=== PATIENT | female | born 1960 | race Caucasian/White ===

== ENCOUNTER → 2017-01-07 | Outpatient (CLI) | payer BC ==
[~2017-01-07] MED LIST: ATEN25TA PO; HYDR25TAB PO; MOME50SP
--- NOTE | 2017-01-07 09:43 | REPMRS ---
Patient History The patient states she had a clinical breast exam in 01/2017. Patient is postmenopausal. Family history of colorectal cancer in mother at age 50 or over and breast cancer in maternal grandmother at age 50 or over. Took hormonal contraceptives for 27 years. Digital Woman Screen Mammo: January 07, 2017 - Exam #: [id number] Bilateral CC and MLO view(s) were taken. Technologist: Lindsay Huston, Technologist Prior study comparison: November 20, 2015, digital woman screen mammo performed at [facility]. November 19, 2014, digital woman screen mammo performed at [facility]. November 16, 2013, digital woman screen mammo performed at [facility]. FINDINGS: There are scattered fibroglandular densities. There has been no change in the appearance of the mammogram from the prior studies. There is a mild amount of scattered fibroglandular density which is fairly symmetric. There is no interval development of dominant mass, architectural distortion, or clustered microcalcification suggestive of malignancy. ASSESSMENT: BI-RADS/ACR category 1 mammogram. Negative. Recommendation Routine screening mammogram in 1 year (for women over age 40). This mammogram was interpreted with the aid of an FDA-approved computer-aided dectection system. Electronically Signed By: Duane Moore MD 01/07/17 0943
== END ==
LOC: M WHC 08:12
PROVIDERS: ATTEND Nurse Practitioner Family
DX: Z12.31 Encounter for screening mammogram for malignant neoplasm of breast (principal); Z92.0 Personal history of contraception; Z78.0 Asymptomatic menopausal state; Z80.0 Family history of malignant neoplasm of digestive organs

== ENCOUNTER 2017-07-01 06:33 | Day surgery (SDC) | payer BC ==
[~2017-07-01] VITALS: Ht 160 cm; Wt 88.5 kg
[~2017-07-01 06:33] MED LIST changes: +CALC500T36 PO; +CALTTAB6 PO; +VITA100067 PO; +VITA20008 PO; +VITMTA PO
[2017-07-01] MEDS ORDERED: LR 1,000 ML IV SCH ×2 (06:45→09:45)
[2017-07-01] MEDS ORDERED: LIDOCAINE 2% INJ 100 MG/5 ML SDV (FOR ANES.) As Ordered ONE (07:17)
[2017-07-01] MEDS ORDERED: PROPOFOL 200 MG/20 ML VIAL As Ordered ONE (07:17)
[2017-07-01] MEDS ORDERED: fentaNYL 100 MCG/2 ML INJECTION (J3010) As Ordered ONE (07:17)
[2017-07-01] MEDS ORDERED: ONDANSETRON 4MG/2ML VIAL (J2405) As Ordered ONE (07:17)
[2017-07-01] MEDS ORDERED: MIDAZOLAM INJ 2 MG/2 ML VIAL (J2250) As Ordered ONE (07:18)
[2017-07-01] MEDS ORDERED: dexameTHASONE 4 MG/ML 1ML VIAL (J1100) As Ordered ONE (07:18)
[2017-07-01] MEDS ORDERED: BUPIVACAINE HCL 0.5% 30 ML VIAL As Ordered ONE (07:18)
[2017-07-01] MEDS ORDERED: LIDOCAINE 2% MDV 20 ML VIAL As Ordered ONE (07:18)
[2017-07-01] MEDS: NEOSPORIN GU IRRIG 20 ML VIAL As Ordered ONE ×2 (08:09→08:10)
[2017-07-01] MEDS: BACITRACIN PWD 50,000 UNITS VIAL As Ordered ONE (08:10)
[2017-07-01] MEDS ORDERED: PERCOCET 5MG/325MG TAB PO PRN (09:45)
[2017-07-01] MEDS ORDERED: ONDANSETRON 4MG/2ML VIAL (J2405) IV PRN (09:45)
[2017-07-01 10:30] VITALS: BP 134/72
--- NOTE | 2017-07-01 10:33 | REP ---
LEFT FOOT, THREE VIEWS: Three views of left foot performed in a portable fashion. There is a metallic plate and multiple metallic screws at the base of the 1st metatarsal and adjacent medial cuneiform. Structures are well aligned. Overlying cast obscures underlying osseous detail. Signed by Mendoza Leach MD 07/01/2017 05:15 P
--- NOTE | 2017-07-02 10:54 | RO ---
DATE OF PROCEDURE: 07/01/2017 PREPROCEDURE DIAGNOSIS: Hallux valgus metatarsus primus varus deformity left foot. POSTPROCEDURE DIAGNOSIS: Hallux valgus metatarsus primus varus deformity left foot. PROCEDURE: Lapidus bunionectomy with plate and screw fixation left foot. SURGEON: Fran Nath DPM VIOLIN TUTOR: None. ANESTHESIA: Local MAC. HARDWARE UTILIZED: Right LPS plate size 0 with nonlocking screws 3.5 x 20 and a 3.5 x 16 and 2.7 x 16 and a 2.7 x 20 and a compression screw Dart-Fire 3.0 x 32. IRRIGATION: Dilute bacitracin, neomycin and polymyxin B solution. HEMOSTASIS: Left ankle pneumatic tourniquet at 225 mmHg for 70 minutes. DESCRIPTION OF OPERATION: On 07/01/2017, this 57-year-old white female was taken from her hospital room to the operating room and placed on the operating room table in the supine position. Following the induction of IV sedation and local and regional anesthesia, the left lower extremity was prepped and draped in the usual aseptic manner. The ankle pneumatic tourniquet was rapidly inflated. Attention was directed to the patient's left foot and the following procedure was performed: LAPIDUS BUNIONECTOMY WITH PLATE AND SCREW FIXATION, SIZE 0 LAPIDUS PLATE WITH NONLOCKING SCREWS 3.5 X 20 AND 3.5 X 16 AND 2.7 X 16 AND 2.7 X 20 AND A DART-FIRE COMPRESSION SCREW 3.0 X 32 MM: Attention was directed to the patient's left foot where there was noted to be a moderately severe hallux valgus deformity. At this time, an incision was made from the mid surface of the medial cuneiform to just distal to the first metatarsal phalangeal joint medial to the extensor tendon. The incision was deepened through subcutaneous tissues and all coursing venous tributaries were identified, underscored, clamped, cut, ligated and electrocoagulated as necessary. A linear capsulotomy was made in the same plane as the original skin incision. The capsular and periosteal structures were then dissected free in one continuous layer dorsally, medially and laterally thus creating and capsular and periosteal type envelope. This delivered into view the hypertrophied medial eminence of the first metatarsal which was osteotomized from distal to proximal through and through exiting medial to the sesamoidal groove. Attention was directed into first intermetatarsal space where dissection was carried to the level of the fibular sesamoid and the conjoined tendon was sharply dissected free from the fibular sesamoid. Attention was then directed toward the first metatarsal cuneiform joint and a periosteal incision was made over the first metatarsal cuneiform joint. The extensor tendon was held in a lateral direction. Utilizing a power saw, a wedge shaped piece of bone was taken from the first cuneiform trying to engage as little bone as possible, trying to minimize bone loss. After the wedge was removed, joint was inspected and no articular cartilage was remaining. Utilizing and #2-0 mm drill bit, the proximal and distal surfaces were fenestrated. The wound was flushed with copious amounts of dilute bacitracin, neomycin and polymyxin B solution. The first metatarsal angle was then reduced the temporary K-wire fixation was made between the first and second metatarsals. Intraoperative C-arm imagery revealed a good reduction of the intermetatarsal angle. A compression screw was then placed measuring 3.0 x 32 mm in length across the first metatarsal cuneiform joint giving good compression at the fusion site. A size 0 Lapidus plate was then contoured to the first metatarsal and middle cuneiform. It was then fixed with nonlocking screws and the proximal margin was 3.5 x 20 and a 3.5 x 16 screw and distally a 2.7 x 16 and a 2.7 x 20 mm screws were utilized. Intraoperative C-arm imagery was obtained to verify good reduction of the hallux valgus deformity and good apposition at the fusion site which was verified. The wound was again flushed with copious amounts of dilute bacitracin, neomycin and polymyxin B solution. Attention was then directed towards closure where the capsular structures were coapted and maintained utilizing #2-0 Monocryl in a simple interrupted type fashion. Subcutaneous tissue coapted and maintained utilizing #4-0 Monocryl in a simple interrupted type fashion. Skin incision coapted and maintained utilizing #4-0 Prolene in a simple interrupted and horizontal mattress type fashion. Following the completion of the surgical procedure, 4 mg of dexamethasone sodium phosphate was instilled lateral to the first intermetatarsal joint. Attention was directed towards bandaging where a sterile compressive bandage was applied consisting of Adaptic, 4x4s, 4x4 splints and Kerlix. A Gallardo compressive dressing with an posterior splint was then placed across the foot and ankle. With release of the tourniquet, instantaneous capillary filling time was noted to digits of 1 through 5 of the patient's left foot. The patient having apparently tolerated the surgical procedure well was taken from the operating room (OR) to the recovery room with vital signs stable and the patient afebrile for further monitoring by the anesthesia department. All surgical specimens removed during the operative procedure were sent to pathology for gross and microscopic examination. Postoperative instructions will be given upon discharge.
== END 2017-07-01 10:50 | disposition home or self-care (01) ==
LOC: M SDC 06:33
PROVIDERS: ATTEND Podiatrist
DX: M20.12 Hallux valgus (acquired), left foot (principal); I10 Essential (primary) hypertension; J45.909 Unspecified asthma, uncomplicated; J32.9 Chronic sinusitis, unspecified; Z88.1 Allergy status to other antibiotic agents; Z88.8 Allergy status to other drugs, medicaments and biological substances; Z79.899 Other long term (current) drug therapy; Z87.891 Personal history of nicotine dependence; Z78.0 Asymptomatic menopausal state
CPT/HCPCS: 28297; 73630; 88300; C1776; J0690; J1100; J2250; J2405; J3010

== ENCOUNTER → 2019-01-11 | Outpatient (CLI) | payer BC ==
[~2019-01-11] MED LIST changes: +CALC12504 PO; -CALC500T36 PO; +HYDR-2541 PO; -HYDR25TAB PO
--- NOTE | 2019-01-11 10:52 | REPMRS ---
Patient History The patient states she had a clinical breast exam in 01/2019. Family history of breast cancer at age 50 or over in maternal grandmother, colorectal cancer at age 50 or over in mother. Took hormonal contraceptives for 27 years. Digital Woman Screen Mammo: January 11, 2019 - Exam #: [id number] Bilateral CC and MLO view(s) were taken. Technologist: Pauly Betancourt, Technologist Prior study comparison: January 10, 2018, digital woman screen mammo performed at [facility]. January 07, 2017, digital woman screen mammo performed at [facility]. November 20, 2015, digital woman screen mammo performed at [facility]. FINDINGS: There are scattered fibroglandular densities. There is a moderate amount of residual fibroglandular tissue which is fairly symmetric. There is no interval development of dominant mass, architectural distortion, or clustered microcalcification typical of malignancy. There has been no change in the appearance of the mammogram from the prior studies. 3-D tomosynthesis shows no additional findings. Assessment: BI-RADS/ACR category 1 mammogram. Negative Mammogram. Recommendation Routine screening mammogram of both breasts in 1 year (for women over age 40). This patient's Lifetime Breast Cancer RIsk is estimated at 10.7 %. This mammogram was interpreted with the aid of an FDA-approved computer-aided dectection system. Electronically Signed By: Duane Moore MD 01/11/19 1551
== END ==
LOC: M WHC 08:38
PROVIDERS: ATTEND Nurse Practitioner Family
DX: Z12.31 Encounter for screening mammogram for malignant neoplasm of breast (principal); Z80.0 Family history of malignant neoplasm of digestive organs; Z92.0 Personal history of contraception

== ENCOUNTER → 2019-01-11 | Outpatient (REF) | payer BC ==
[2019-01-13 14:43] LABS: HPV HYBRID CAPTURE II Negative (Negative)
== END ==
LOC: M SFHCWAGY 08:37
PROVIDERS: ATTEND Nurse Practitioner Family
DX: Z12.4 Encounter for screening for malignant neoplasm of cervix (principal)
CPT/HCPCS: 87624; G0123

== ENCOUNTER → 2020-04-09 | Outpatient (CLI) | payer BC ==
[~2020-04-09] MED LIST changes: -CALC12504 PO; +CALC500T61 PO
--- NOTE | 2020-04-09 10:03 | REPMRS ---
Patient History The patient states she had a clinical breast exam in April 2020. Patient is postmenopausal. Family history of breast cancer at age 50 or over in maternal grandmother, colorectal cancer at age 50 or over in mother. Took hormonal contraceptives for 27 years. 3D TOMOSYNTHESIS WAS PERFORMED. [facility] lifetime risk for breast cancer is 13.3%. VOLPARA DENSITY B. Digital Woman Screen Mammo: April 09, 2020 - Exam #: [id number] Bilateral CC and MLO view(s) were taken. Technologist: Camille Keane, Technologist Prior study comparison: January 11, 2019, bilateral digital woman screen mammo performed at [facility]. January 10, 2018, digital woman screen mammo performed at [facility]. FINDINGS: There are scattered fibroglandular densities. There has been no change in the appearance of the mammogram from the prior studies. There is a mild amount of residual fibroglandular tissue which is fairly symmetric. There is no interval development of dominant mass, architectural distortion, or clustered microcalcification suggestive of malignancy. Assessment: BI-RADS/ACR category 1 mammogram. Negative Mammogram. Recommendation Routine screening mammogram in 1 year (for women over age 40). This mammogram was interpreted with the aid of an FDA-approved computer-aided dectection system. Electronically Signed By: Mendoza Leach MD 04/09/20 1002
== END ==
LOC: M WHC 08:00
PROVIDERS: ATTEND Nurse Practitioner Family
DX: Z12.31 Encounter for screening mammogram for malignant neoplasm of breast (principal); Z78.0 Asymptomatic menopausal state; Z80.0 Family history of malignant neoplasm of digestive organs; Z92.0 Personal history of contraception

== ENCOUNTER → 2021-04-28 | Outpatient (CLI) | payer BC ==
--- NOTE | 2021-04-28 17:06 | REPMRS ---
Patient History The patient states she had a clinical breast exam in April 2021. Family history of breast cancer at age 50 or over in maternal grandmother, colorectal cancer at age 50 or over in mother. Took hormonal contraceptives for 27 years. Patient states no breast complaints today. Patient has signed MRS History Sheet. Digital Woman Screen Mammo: April 28, 2021 - Exam #: [id number] Bilateral CC and MLO view(s) were taken. Technologist: Pauly Betancourt, Technologist Prior study comparison: April 09, 2020, bilateral digital woman screen mammo performed at [facility]. January 11, 2019, bilateral digital woman screen mammo performed at [facility]. FINDINGS: There are scattered fibroglandular densities. Screening. Digital screening (2D) mammography was performed bilaterally in the CC and MLO projections. Additionally, breast tomosynthesis (3D mammography) was performed bilaterally in the CC and MLO projections. Todays exam was compared to the prior exam/exams. By history, the patient has no complaints of a palpable breast abnormality or other significant breast complaints. The breasts are unchanged in size and shape. There are no ricardo-soft tissue densities or spiculated masses. There is no internal architectural distortion. Once again, stable benign appearing calcifications are seen.There are no suspicious ricardo-calcific clusters. Skin thickening or nipple retraction is not present. IMPRESSION: BI-RADS Category 2- Benign Findings. There is no evidence of malignant alteration of the breasts. Followup examination recommended in one year. The Volpara volumetric breast density category is B, there are scattered areas of fibroglandular densities. This mammogram was read with the assistance [facility],an FDA approved computer aided detection system for mammography. The lifetime Tyrer-Cuzick score is 12.5 % Negative x-ray reports should not delay surgical consultation if a dominant or clinically suspicious mass is present. Not all breast cancers can be identified by mammography. Therefore, we recommend that you continue to perform regular breast self-examination and physical examination and then promptly contact your physician of any concerns or changes. Adenosis and dense breasts may obscure an underlying neoplasm. Assessment: BI-RADS/ACR category 2 mammogram. Benign Findings. Recommendation Routine screening mammogram of both breasts in 1 year. Electronically Signed By: Cali Borjas 04/28/21 2097
== END ==
LOC: M WHC 09:04
PROVIDERS: ATTEND Obstetrics & Gynecology
DX: Z12.31 Encounter for screening mammogram for malignant neoplasm of breast (principal)

== ENCOUNTER 2021-10-19 09:36 | Day surgery (SDC) | payer OTHER, SELFPAY ==
[~2021-10-19] VITALS: Ht 160 cm; Wt 95.3 kg
[~2021-10-19 09:36] MED LIST changes: +D31000TA2 PO; +FLON1SPR; +HYDR-3490 PO; +LEVO100T5 PO; -MOME50SP; +NASO50SP3; +NS 1,000 ML IV ONE
[2021-10-19] MEDS ORDERED: LIDOCAINE 2% 100MG/5ML SDV (FOR ANES.) As Ordered ONE (10:44)
[2021-10-19] MEDS ORDERED: propofoL 200 MG/20 ML VIAL As Ordered ONE ×2 (10:45→11:03)
[2021-10-19] MEDS ORDERED: GLYCOPYRROLATE INJ 0.2 MG/ML 2 ML VIAL As Ordered ONE (11:03)
[2021-10-19 11:42] VITALS: BP 156/82
== END 2021-10-19 11:40 | disposition home or self-care (01) ==
LOC: M OPP 09:36
PROVIDERS: ATTEND Internal Medicine Gastroenterology
DX: Z12.11 Encounter for screening for malignant neoplasm of colon (principal); Z80.0 Family history of malignant neoplasm of digestive organs; K57.30 Diverticulosis of large intestine without perforation or abscess without bleeding; K64.0 First degree hemorrhoids; Z79.899 Other long term (current) drug therapy; Z88.1 Allergy status to other antibiotic agents; Z88.8 Allergy status to other drugs, medicaments and biological substances; Z87.891 Personal history of nicotine dependence

== ENCOUNTER → 2022-04-29 | Outpatient (CLI) | payer OTHER ==
[~2022-04-29] MED LIST changes: -D31000TA2 PO; -NS 1,000 ML IV ONE; +VITA100093 PO
== END ==
LOC: M WHC 07:15
PROVIDERS: ATTEND Advanced Practice Midwife
DX: Z12.31 Encounter for screening mammogram for malignant neoplasm of breast (principal)

== ENCOUNTER → 2022-04-29 | Outpatient (REF) | payer OTHER | LOC: M PLALAB 08:40 | PROVIDERS: ATTEND Nurse Practitioner Family | DX: Z12.4 Encounter for screening for malignant neoplasm of cervix (principal) | CPT/HCPCS: 87624; G0123 ==

== ENCOUNTER → 2023-05-12 | Outpatient (CLI) | payer OTHER | LOC: M WHC 08:04 | PROVIDERS: ATTEND Nurse Practitioner Family | DX: Z12.31 Encounter for screening mammogram for malignant neoplasm of breast (principal) ==

== ENCOUNTER → 2024-02-23 | Outpatient (CLI) | payer OTHER | LOC: M WUC 11:48 | PROVIDERS: ATTEND Physician Assistant | DX: M25.561 Pain in right knee (principal) ==

== ENCOUNTER → 2024-05-16 | Outpatient (CLI) | payer OTHER, MEDICARE | LOC: M WHC 07:55 | PROVIDERS: ATTEND Nurse Practitioner Family | DX: Z12.31 Encounter for screening mammogram for malignant neoplasm of breast (principal) ==

== ENCOUNTER → 2024-05-16 | Outpatient (REF) | payer OTHER, MEDICARE, BC ==
[2024-05-18 13:06] LABS: HPV APTIMA Not Detected (Not Detected)
== END ==
LOC: M SFHCWAGY 13:32
PROVIDERS: ATTEND Nurse Practitioner Family
DX: Z12.4 Encounter for screening for malignant neoplasm of cervix (principal)
CPT/HCPCS: 87624; G0123

== ENCOUNTER → 2025-06-26 | Outpatient (CLI) | payer MEDICARE, OTHER | LOC: M WHC 11:13 | PROVIDERS: ATTEND Physician Assistant | DX: Z12.31 Encounter for screening mammogram for malignant neoplasm of breast (principal); R92.323 Mammographic fibroglandular density, bilateral breasts ==

== ENCOUNTER → 2025-06-26 | Outpatient (REF) | payer BC, MEDICARE ==
[2025-06-28 14:37] LABS: HPV APTIMA Not Detected (Not Detected)
== END ==
LOC: M PLALAB 12:25
PROVIDERS: ATTEND Physician Assistant
DX: Z12.4 Encounter for screening for malignant neoplasm of cervix (principal)
CPT/HCPCS: 87624; G0123